=== PATIENT | female | born 1980 | race Caucasian/White ===

== ENCOUNTER 2016-04-17 02:47 | Emergency (ER) | payer MEDICAID ==
[~2016-04-17] VITALS: Ht 157.5 cm; Wt 64.5 kg
[2016-04-17 02:50] VITALS: Ht 157.5 cm; Wt 64.5 kg
--- NOTE | 2016-04-17 05:17 | ERD ---
ER Documentation Chief Complaint Date/Time DATE: 04/17/16 TIME: 05:15 Chief Complaint foreign body "condom" left in vagina HPI 36-year-old female with no significant past medical history is a A1 presents to the ED complaining of a foreign body noted in her vagina. Reports that she was having intercourse with her 1-1/2 hours ago and states that she thinks it is a condom. States that her last menses was on February. Reports that she is having slight vaginal discomfort. Denies any vaginal discharge, vaginal leading, abdominal pain, nausea, vomiting, diarrhea. Reports she has normal bowel movements. ROS All systems reviewed and are negative except as per history of present illness. Allergies Allergies: Coded Allergies: No Known Allergies (Unverified Allergy, Unknown, 12/05/14) PMhx/Soc History of Surgery: No Anesthesia Reaction: No Hx Neurological Disorder: No Hx Respiratory Disorders: No Hx Cardiac Disorders: No Hx Alcohol Use: No Hx Substance Use: No Hx Tobacco Use: No Smoking Status: Never smoker Physical Exam Vitals Vital Signs Date Time Temp Pulse Resp B/P Pulse Ox O2 Delivery O2 Flow Rate FiO2 04/17/16 02:50 97.2 93 20 155/82 99 Physical Exam Const: Uxo-fwe-aklqbhyvv, well-nourished. In no acute distress. Head: Atraumatic, normocephalic Eyes: Normal Conjunctiva without injection. No purulent discharge. ENT: Normal external ear, nose. Moist oropharynx without tonsillar exudates. Non -erythematous pharynx. Uvula midline. No drooling. No trismus. Neck: No cervical midline tenderness. Full range of motion. No meningismus. No cervical lymphadenopathy. No JVD. Resp: Clear to auscultation bilaterally. No wheezing, rhonchi, rales, or crackles. No accessory muscle use. No retractions. Cardio: Regular rate and rhythm. No murmurs, rubs or gallops. Abd: Soft, nontender to palpation, non distended. Normal bowel sounds. No palpable masses. No rebound tenderness. No guarding. Negative McBurney's point. Negative psoas sign. Negative obturator sign. : See exam in MDM. Skin: No petechiae or rashes Back: No midline tenderness. No CVA tenderness. Ext: No cyanosis, or edema. Neur: Awake and alert. Normal gait. Normal coordination. Psych: Normal Mood and Affect Procedures/MDM 36-year-old female who is a A1 presents to the ED for a foreign body noted in her vaginal canal. Patient is afebrile nontoxic appearing. Patient gave consent to do a pelvic exam at this time. Pelvic Exam: Triage Register Nurse present Abdomen: [Nontender] External Genitalia: [Normal Skin] Speculum: [Normal vaginal mucosa, normal cervical discharge, Silicone foreign body noted likely a sex toy] Foreign body was removed without difficulty or complications. Cervix was noted. Nonfriable. Bimanual: [No adnexal masses or tenderness, No CMT] Low suspicion for toxic shock syndrome gastritis, GERD, peptic ulcer disease, cholecystitis, choledocholithiasis, cholangitis, pancreatitis, appendicitis, bowel obstruction, ileus, volvulus, nephrolithiasis, pyelonephritis, hepatitis, perforated viscus, diverticulitis, abdominal hernia, acute abdomen, mesenteric ischemia or other emergent conditions. Low suspicion for symptomatic anemia, ectopic , sepsis, PID, appendicitis, ovarian torsion, tubo-ovarian abscess, surgical abdomen, or other emergent conditions. Patient was educated that there is a risk for threatened . Patient to follow up with IT SALES REPRESENTATIVE in 2 days for further evaluation and treatment. Patient is to return sooner to the ED for any worsening symptoms. Patient's questions were answered. Patient understood and agreed with discharge plan. Departure Diagnosis: Primary Impression: Retained foreign body of vagina Condition: Stable Patient Instructions: Vaginal Foreign Body, Removed (Adult) Referrals: PENDING SALE TO [facility] YOU HAVE RECEIVED A MEDICAL SCREENING EXAM AND THE RESULTS INDICATE THAT YOU DO NOT HAVE A CONDITION THAT REQUIRES URGENT TREATMENT IN THE EMERGENCY DEPARTMENT. FURTHER EVALUATION AND TREATMENT OF YOUR CONDITION CAN WAIT UNTIL YOU ARE SEEN IN YOUR DOCTORS OFFICE WITHIN THE NEXT 1-2 DAYS. IT IS YOUR RESPONSIBILITY TO MAKE AN APPOINTMENT FOR FOLOW-UP CARE. IF YOU HAVE A PRIMARY DOCTOR --you should call your primary doctor and schedule an appointment IF YOU DO NOT HAVE A PRIMARY DOCTOR YOU CAN CALL OUR PHYSICIAN REFERRAL HOTLINE AT IF YOU CAN NOT AFFORD TO SEE A PHYSICIAN YOU CAN CHOSE FROM THE FOLLOWING PENDING SALE TO [facility] [address] [facility] [address] [facility] [facility] [address] [facility] [address] [facility] [address] [facility]. [facility]. [address] [facility]. [facility] YOU HAVE RECEIVED A MEDICAL SCREENING EXAM AND THE RESULTS INDICATE THAT YOU DO NOT HAVE A CONDITION THAT REQUIRES URGENT TREATMENT IN THE EMERGENCY DEPARTMENT. FURTHER EVALUATION AND TREATMENT OF YOUR CONDITION CAN WAIT UNTIL YOU ARE SEEN IN YOUR DOCTORS OFFICE WITHIN THE NEXT 1-2 DAYS. IT IS YOUR RESPONSIBILITY TO MAKE AN APPOINTMENT FOR FOLOW-UP CARE. IF YOU HAVE A PRIMARY DOCTOR --you should call your primary doctor and schedule and appointment IF YOU DO NOT HAVE A PRIMARY DOCTOR YOU CAN CALL OUR PHYSICIAN REFERRAL HOTLINE AT . IF YOU CAN NOT AFFORD TO SEE A PHYSICIAN YOU CAN CHOSE FROM THE FOLLOWING [facility] INSTITUTIONS: [facility] [address] [place] [address] [facility] [address] [place] [address] [facility] [address] [place] [address] IT SALES REPRESENT[place] [address] [facility] [address] [place], [place] [phone] OFFICE FAX ROXANNA JIM [address] [place], [place] [id number] [address]. QUINTANA FORREST [address] [place], [place] [phone] JOE BAKER [address] [facility], [address] [id number] MARY KATE SCHERER [address] [place], [place] [phone] [facility] [address] [place] [id number] [facility], [facility] [address] [address] TAPIA, ROX[address], [facility] [id number]ARR[address], [place] [address] [facility]. [address] [phone] [place] LEON, [place] [address] [place] [address] [facility] Hours: 8:00 am - 5:00 pm Additional Instructions: Visite a presley filemon butler para un EXAMEN.Regrese a estas instalaciones si no se mejora sebastián esperbamos o sebastián le dianiyamos. SALMA AVILA PA-C Apr 17, 2016 05:17
== END 2016-04-17 04:40 | disposition home or self-care (01) ==
LOC: FTE 02:47
DX: T19.2XXA Foreign body in vulva and vagina, initial encounter (principal); X58.XXXA Exposure to other specified factors, initial encounter
CPT/HCPCS: 99284